=== PATIENT | female | born 1960 ===

== ENCOUNTER 2024-07-14 22:33 | Emergency (ER) | payer OTHER ==
[~2024-07-14] VITALS: Ht 157.5 cm; Wt 63.5 kg
[2024-07-15] MEDS ORDERED: Ketorolac Tromethamine 15mg Vial IM ONE (03:05)
[2024-07-15] MEDS ORDERED: NAPROXEN250 M1 PO (03:06)
== END 2024-07-15 03:14 | disposition home or self-care (01) ==
LOC: ER 22:33
DX: S83.92XA Sprain of unspecified site of left knee, initial encounter (principal); W18.30XA Fall on same level, unspecified, initial encounter; Z88.0 Allergy status to penicillin; Z88.8 Allergy status to other drugs, medicaments and biological substances
CPT/HCPCS: 73562-LT; 96372; 99283-25; J1885